=== PATIENT | male | born 1955 | race Caucasian/White ===

== ENCOUNTER 2018-12-15 21:47 | Emergency (ER) | payer SELFPAY ==
--- NOTE | 2018-12-15 23:01 | ER Document Report ---
ED General - General Chief Complaint: Chest Pain Stated Complaint: CHEST PAIN Time Seen by Provider: 12/15/18 23:00 Notes: Patient is a 63-year-old male who presents with complaint of chest pain. Chest pain is pressure-like sensation over his left side of his chest. Some shortness of breath. No fevers. No vomiting. No diarrhea. Patient is visiting from [place]. He says he has been down there for approximately a month and around out of his Plavix 2 weeks ago. He ran out of his losartan a few days ago. He says he also had little bit of dizziness earlier in the day. He says he has a history of a previous stroke several years ago where he had a cerebellar stroke which caused dizziness and therefore this caused him some concern. He denies any dizziness at this time. He denies any focal weakness or numbness. No facial droop. No recent trauma. No other complaints at this time. He has a history of 2 previous stents. Last cardiac cath and stent placement was in 2016. This was done in [place]. TRAVEL OUTSIDE OF THE [place] IN LAST 30 DAYS: No - Related Data Allergies/Adverse Reactions: No Known Allergies Allergy (Unverified 12/15/18 23:26) Past Medical History - Social History Smoking Status: Unknown if Ever Smoked Frequency of alcohol use: None Drug Abuse: None Family History: Reviewed & Not Pertinent Physical Exam - Vital signs Vitals: Temp Pulse Resp BP Pulse Ox 98.5 F 65 18 184/116 H 95 12/15/18 22:14 12/15/18 22:14 12/15/18 22:14 12/15/18 22:14 12/15/18 22:14 Course - Re-evaluation Re-evalutation: 12/16/18 01:11 After 2 sublingual nitro patient's chest pain went down to a 2 out of 10. I then placed Nitropaste on him and his pain is now resolved. He looks and feels well. He started complain about the dizziness he and therefore I did obtain a CT scan. No evidence of intracerebral bleeding. He clinically looks well and i s comfortable. Due to the fact that he has elevated troponin, history of stents, and has been off his Plavix I have large concern that he probably has reocclusion of 1 of his stents or another blockage. I feel that he should get a facility where they can do potential cardiac intervention. I therefore called [facility] and I am waiting to hear back from the hospitalist. 12/16/18 02:15 I did speak with Dr. Mynor Saunders who agrees to accept the patient for transfer. Patient says he is feeling a bit anxious being that he might be having a heart attack and therefore we will give a small dose of Ativan. He continues to deny any chest pain since Nitropaste has been applied. - Vital Signs Vital signs: Temp Pulse Resp BP Pulse Ox 97.8 F 65 0 L 130/93 H 95 12/16/18 03:00 12/15/18 22:14 12/16/18 03:01 12/16/18 03:01 12/16/18 03:01 - Laboratory Result Diagrams: 12/15/18 23:05 12/15/18 23:05 - EKG Interpretation by Me Additional EKG results interpreted by me: 12/15/18 23:00 EKG is reviewed and interpreted by me. Sinus rhythm with a rate of [address] segment elevation. No significant ST segment depression. FL interval, QRS duration, QT intervals are within normal range. No old EKG available for comparison. Discharge - Discharge Clinical Impression: NSTEMI (non-ST elevated myocardial infarction) Condition: Stable Disposition: [facility]
[2018-12-15] MEDS ORDERED: CLOPIDOGREL BISULFATE 75 MG TABLET PO ONE (23:07)
[2018-12-15] MEDS ORDERED: ASPIRIN 325 MG TABLET PO ONE (23:07)
[2018-12-15 23:23] LABS: ABSOLUTE BASOPHILS # (AUTO) 0.1 10^3/uL (0.0-0.2); ABSOLUTE EOSINOPHILS # (AUTO) 0.1 10^3/uL (0.0-0.6); ABSOLUTE MONOCYTES (AUTO) 0.7 10^3/uL (0.1-1.4); ABSOLUTE NEUT (AUTO) 3.2 10^3/uL (1.7-8.2); BASOPHILS % (AUTO) 1.2 % (0-2); EOSINOPHILS % (AUTO) 1.7 % (0-6); HEMATOCRIT 40.6 % (37.9-51.0); HEMOGLOBIN 14.5 g/dL (13.5-17.0); LYMPHOCYTES % (AUTO) 42.8 % (13-45); MEAN CORPUSCULAR HEMOGLOBIN 31.7 pg (27.0-33.4); MEAN CORPUSCULAR HGB CONC 35.8 g/dL (32.0-36.0); MEAN CORPUSCULAR VOLUME 88 fl (80-97); MONOCYTES % (AUTO) 9.7 % (3-13); PLATELET COUNT 274 10^3/uL (150-450); RED BLOOD COUNT 4.59 10^6/uL (4.35-5.55); RED CELL DISTRIBUTION WIDTH 13.8 % (11.5-14.0); SEGMENTED NEUTROPHILS % (AUTO) 44.6 % (42-78); TOTAL CELLS COUNTED % (AUTO) 100 %; WHITE BLOOD COUNT 7.1 10^3/uL (4.0-10.5)
--- NOTE | 2018-12-15 23:31 | RADIOLOGY REPORT (SQ) ---
EXAM DESCRIPTION: XR CHEST 1 VIEW COMPLETED DATE/TME: 12/15/2018 23:08 CLINICAL HISTORY: 63 years, Male, chest pain COMPARISON: None. NUMBER OF VIEWS: 1 TECHNIQUE: Portable chest LIMITATIONS: None. FINDINGS: Heart size normal. Scarring left lung base. No pneumothorax. Lungs are otherwise clear IMPRESSION: No acute cardiopulmonary process copyright 2010 [employer]- All Rights Reserved
[2018-12-15] MEDS: NITROGLYCERIN 0.4 MG/TAB 25 TAB/BOTTLE SL PRN ×2 (23:32→23:39)
[2018-12-15 23:34] LABS: ALANINE AMINOTRANSFERASE 69 U/L (21-72); ALBUMIN 4.3 g/dL (3.5-5.0); ALKALINE PHOSPHATASE 89 U/L (38-126); ANION GAP 13 (5-19); ASPARTATE AMINO TRANSFERASE 50 U/L (17-59); BILIRUBIN,DIRECT 0.1 mg/dL (0.0-0.4); BLOOD UREA NITROGEN 14 mg/dL (7-20); CALCIUM 9.5 mg/dL (8.4-10.2); CARBON DIOXIDE 22 mmol/L (22-30); CHLORIDE 105 mmol/L (98-107); GLUCOSE 93 mg/dL (75-110); SODIUM 139.9 mmol/L (137-145); TOTAL PROTEIN 7.3 g/dL (6.3-8.2)
--- NOTE | 2018-12-15 23:47 | EKG REPORT ---
SEVERITY:- ABNORMAL ECG - SINUS RHYTHM NONSPECIFIC INTRAVENTRICULAR CONDUCTION DELAY MINIMAL ST DEPRESSION, INFERIOR LEADS : Confirmed by: Camille Hollingsworth 15-Dec-2018 23:47:03
[2018-12-15] MEDS ORDERED: NITROGLYCERIN 2% OINTMENT 1 GM PACKET TP ONE (23:54)
--- NOTE | 2018-12-16 01:05 | RADIOLOGY REPORT (SQ) ---
EXAM DESCRIPTION: CT HEAD WITHOUT IV CONTRAST COMPLETED DATE/TME: 12/16/2018 00:09 CLINICAL HISTORY: 63 years, Male, dizziness COMPARISON: None Available. Technique: Contiguous axial images of the brain were obtained without the administration of intravenous contrast. Coronal and sagittal reformats obtained and reviewed. This exam was performed according to our departmental dose-optimization program which includes use of Automated Exposure Control, adjustment of the mA and/or kV according to patient size and/or use of iterative reconstruction technique. Findings: Brain: Periventricular and deep white matter hypodensities, most commonly due to nonspecific white matter chronic microvascular ischemia.No hemorrhage. No territorial infarct. No mass effect. No herniation. Ventricles: Within normal limits for patient's age. Bones: No acute osseous abnormality. Paranasal sinuses: Unremarkable. Mastoid air cells: Unremarkable. Soft tissues: No acute abnormality. IMPRESSION: No acute intracranial abnormalities.
[2018-12-16] MEDS ORDERED: ENOXAPARIN SODIUM INJ 100 MG/1 ML DISP.SYRIN SUBCUT SCH ×2 (01:30→10:00)
[2018-12-16] MEDS ORDERED: ENOXAPARIN SODIUM INJ 100 MG/1 ML DISP.SYRIN SUBCUT ONE (02:00)
[2018-12-16] MEDS ORDERED: LORAZEPAM 0.5 MG TABLET PO ONE (02:14)
[2018-12-16 03:03] VITALS: BP 130/93
== END 2018-12-16 03:10 | disposition short-term general hospital (02) ==
LOC: ER 21:47
DX: I21.4 Non-ST elevation (NSTEMI) myocardial infarction (principal); T45.526A Underdosing of antithrombotic drugs, initial encounter; T46.5X6A Underdosing of other antihypertensive drugs, initial encounter; Z91.128 Patient's intentional underdosing of medication regimen for other reason; Z91.14 Patient's other noncompliance with medication regimen; F41.9 Anxiety disorder, unspecified; R42 Dizziness and giddiness; Z86.73 Personal history of transient ischemic attack (TIA), and cerebral infarction without residual deficits; Z95.5 Presence of coronary angioplasty implant and graft
CPT/HCPCS: 93005; 99285; 96372; 36415; 85025; 80053; 84484; 71045; 70450; 93010; J1650

== ENCOUNTER 2019-11-18 18:25 | Emergency (ER) | payer SELFPAY ==
[2019-11-18 18:56] LABS: ABSOLUTE BASOPHILS # (AUTO) 0.1 10^3/uL (0.0-0.2); ABSOLUTE EOSINOPHILS # (AUTO) 0.1 10^3/uL (0.0-0.6); ABSOLUTE LYMPHOCYTES (AUTO) 2.2 10^3/uL (0.5-4.7); ABSOLUTE MONOCYTES (AUTO) 1.2 10^3/uL (0.1-1.4); ABSOLUTE NEUT (AUTO) 9.2 10^3/uL (1.7-8.2); BASOPHILS % (AUTO) 0.7 % (0-2); EOSINOPHILS % (AUTO) 0.5 % (0-6); HEMATOCRIT 40.8 % (37.9-51.0); HEMOGLOBIN 14.2 g/dL (13.5-17.0); LYMPHOCYTES % (AUTO) 17.1 % (13-45); MEAN CORPUSCULAR HEMOGLOBIN 31.5 pg (27.0-33.4); MEAN CORPUSCULAR HGB CONC 34.8 g/dL (32.0-36.0); MEAN CORPUSCULAR VOLUME 90 fl (80-97); MONOCYTES % (AUTO) 9.5 % (3-13); PLATELET COUNT 271 10^3/uL (150-450); RED BLOOD COUNT 4.51 10^6/uL (4.35-5.55); RED CELL DISTRIBUTION WIDTH 13.7 % (11.5-14.0); SEGMENTED NEUTROPHILS % (AUTO) 72.2 % (42-78); TOTAL CELLS COUNTED % (AUTO) 100 %; WHITE BLOOD COUNT 12.7 10^3/uL (4.0-10.5)
[2019-11-18 19:15] LABS: ALBUMIN 4.1 g/dL (3.5-5.0); ALKALINE PHOSPHATASE 110 U/L (38-126); ANION GAP 7 (5-19); ASPARTATE AMINO TRANSFERASE 38 U/L (17-59); BILIRUBIN,TOTAL 1.8 mg/dL (0.2-1.3); BLOOD UREA NITROGEN 14 mg/dL (7-20); CALCIUM 9.7 mg/dL (8.4-10.2); CARBON DIOXIDE 26 mmol/L (22-30); CHLORIDE 104 mmol/L (98-107); CREATINE KINASE 45 U/L (55-170); GLUCOSE 108 mg/dL (75-110); POTASSIUM 4.5 mmol/L (3.6-5.0); TOTAL PROTEIN 7.1 g/dL (6.3-8.2)
[2019-11-18 19:25] LABS: CREATINE KINASE MB 0.34 ng/mL (<4.55)
[2019-11-18 19:26] LABS: TROPONIN I < 0.012 ng/mL
--- NOTE | 2019-11-18 22:34 | ER Document Report ---
ED General - General Chief Complaint: Chest Pain Stated Complaint: RIGHT SIDE CHEST PAIN/NAUSEA Time Seen by Provider: 11/18/19 22:17 Primary Care Provider: JONY CROFT NP [Primary Care Provider] - Follow up as needed TRAVEL OUTSIDE OF THE [place] IN LAST 30 DAYS: No - HPI Notes: 64-year-old male presenting for evaluation of chest pain. This gentleman had coronary bypass surgery approximately a year ago. He has had no pain until yesterday afternoon when he started having intermittent right-sided pleuritic pain. This described as 4/10 intensity. Associated with mild dyspnea. Non- productive cough. No fever. No hemoptysis. He denies any leg pain or swelling. No recent trauma or surgery. No known history of thromboembolic disease. Several additional episodes of similar discomfort today. This afternoon while he was driving his car his pain seemed to get a little worse. He called EMS and was transported here. He was given nitroglycerin once by EMS and he reports that his pain was resolved thereafter and has not returned. He takes aspirin daily and has had his aspirin today. Patient has hypertension and hyperlipidemia. He is not diabetic. His family history is strongly positive for coronary disease. Family history is negative for thromboembolic disease. - Related Data Allergies/Adverse Reactions: No Known Allergies Allergy (Unverified 12/15/18 23:26) Home Medications: pt unable to recall medication, states that someone will arrive with a list Past Medical History - General Information source: Patient - Social History Smoking Status: Never Smoker Family History: Reviewed & Not Pertinent Patient has suicidal ideation: No Patient has homicidal ideation: No - Past Medical History Cardiac Medical History: Reports: Hx Heart Attack - under anesthesia, Hx Hypertension Renal/ Medical History: Denies: Hx Peritoneal Dialysis Past Surgical History: Reports: Hx Cardiac Catheterization - x2, Hx Cardiac Surgery - 2 stents Review of Systems - Review of Systems Notes: Constitutional: Negative for fever. HENT: Negative for sore throat. Eyes: Negative for visual changes. Cardiovascular: As per HPI. Respiratory: As per HPI. Gastrointestinal: Negative for abdominal pain, vomiting or diarrhea. Genitourinary: Negative for dysuria. Musculoskeletal: Negative for back pain. Skin: Negative for rash. Neurological: Negative for headaches, weakness or numbness. 10 point ROS negative except as marked above and in HPI. Physical Exam - Vital signs Vitals: Resp BP Pulse Ox 21 H 168/103 H 95 11/18/19 18:38 11/18/19 18:38 11/18/19 18:38 - Notes Notes: GENERAL: Well-developed well-nourished appearing in no acute distress. SKIN: Good turgor no rashes. HEAD: Normocephalic atraumatic. EYES: PERRLA. EOMI. Conjunctivae and sclerae clear. EARS: CANALS AND TMS CLEAR. NOSE: CLEAR. MOUTH: Moist mucosa. Good dentition. No stridor or edema. No drooling. NECK: Supple. No masses or thyromegaly. No adenopathy. Carotids 2+ without bruits. No JVD. BACK: Symmetrical without tenderness. CHEST: Healed CABG scar. Respirations unlabored. Breath sounds clear and symmetrical. HEART: Regular rhythm. No murmur gallop or rub. ABDOMEN: Soft nontender without masses, organomegaly or rebound. Bowel sounds normally active. No bruits. GENITALIA: Deferred. EXTREMITIES: No edema. No calf tenderness. Cap refill less than 1.5 seconds. Dorsalis pedis and posterior tibial pulses 3+ and symmetrical. NEUROLOGICAL: GCS 15. Alert and oriented x3. Normal gait. Fluent speech. Cranial nerves II through XII intact. Sensorimotor and cerebellar normal. Normal tone. PSYCHIATRIC: Appropriate affect. Course - Re-evaluation Re-evalutation: 11/18/19 23:22 Initial EKG shows no acute changes. He has had 2 troponins here which are neg ative. Because of his age group and the pattern of his pain which is pleuritic in nature as well as his associated transient dyspnea I am going to get a chest CTA to rule out PE. - Vital Signs Vital signs: Temp Pulse Resp BP Pulse Ox 98.2 F 75 21 H 150/99 H 96 11/18/19 20:58 11/18/19 20:58 11/19/19 03:01 11/19/19 03:01 11/19/19 03:01 - Laboratory Result Diagrams: 11/18/19 18:40 11/18/19 18:40 Laboratory results interpreted by me: 11/18/19 11/18/19 18:40 18:40 WBC 12.7 H Absolute Neuts (auto) 9.2 H Sodium 136.9 L Total Bilirubin 1.8 H ALT 63 H Creatine Kinase 45 L Discharge - Discharge Clinical Impression: Pruritus Condition: Stable Disposition: HOME, SELF-CARE Additional Instructions: Pleurisy Your chest pain has been diagnosed as pleuritis (pleurisy). This is an in flammation of the surface of the lung tissue. It can be caused by a virus or, occasionally, old scar tissue. It is painful but, for the most part, not a serious problem. This pain is usually made worse by deep breathing, coughing, or sudden movements of the upper body or arms. The treatment is relief of symptoms. It includes rest, antiinflammatory medication, and pain medicine. Resolution of the pain is usually rapid once antiinflammatory medication is started. Warning signs of a more serious problem include: a fever, shortness of breath, pain that radiates to your jaw, shoulders or arms, or coughing up bloody sputum. If any of these symptoms occur, call the physician at once. Take prescribed medications. See your doctor tomorrow for follow-up. Return here as needed for new or worsening symptoms: Pain that is worsening or unimproved Uncontrolled vomiting High fever or shaking chills Overall worsening Prescriptions: Acetaminophen with Codeine [Tylenol with Codeine #3 Tablet] 2 each PO Q6H 3 Days #20 tablet Azithromycin [Zithromax 250 mg Tablet] 250 mg PO ASDIR PRN #6 tablet PRN Reason: Referrals: JONY CROFT NP [Primary Care Provider] - Follow up as needed
--- NOTE | 2019-11-19 01:08 | RADIOLOGY REPORT (SQ) ---
EXAM DESCRIPTION: CT CHEST ANGIOGRAPHY WITHOUT THEN WITH IV CONTRAST COMPLETED DATE/TME: 11/18/2019 23:18 CLINICAL HISTORY: 64 years, Male, Pleuritic CP. CREAT 1.07 COMPARISON: None. TECHNIQUE: Images stored on PACS. All CT scanners at this facility use dose modulation, iterative reconstruction, and/or weight based dosing when appropriate to reduce radiation dose to as low as reasonably achievable (ALARA). [facility]: Dose Right [facility]: CareDose [facility]: Dose Right [facility]: Teradose 4D [facility]: [employer] LIMITATIONS: None. FINDINGS: Motion artifact No evidence of pulmonary embolus. Thoracic aorta is of normal caliber. The heart is enlarged with postsurgical change from midline sternotomy. No pericardial fluid. The lungs demonstrate chronic changes. No acute process. No effusion. No pneumothorax. Visualized abdominal contents are unremarkable. IMPRESSION: No evidence of pulmonary embolus.. Lungs grossly clear TECHNICAL DOCUMENTATION: Quality ID # 436: Final reports with documentation of one or more dose reduction techniques (e.g., Automated exposure control, adjustment of the mA and/or kV according to patient size, use of iterative reconstruction technique) copyright 2011 [employer]- All Rights Reserved
[2019-11-19] MEDS ORDERED: ONDANSETRON HCL INJ/PF 4 MG/2 ML SDV IV ONE (02:29)
[2019-11-19] MEDS ORDERED: PANTOPRAZOLE SODIUM 40 MG VIAL IV ONE (02:30)
[2019-11-19] MEDS ORDERED: FENTANYL CITRATE INJ/PF 100 MCG/2 ML AMPUL IV ONE (02:30)
[2019-11-19] MEDS ORDERED: AZITHROMYCIN INJ 500 MG VIAL IV ONE (02:34)
[2019-11-19 05:44] VITALS: BP 139/95
--- NOTE | 2019-11-19 17:23 | EKG REPORT ---
SEVERITY:- OTHERWISE NORMAL ECG - SINUS RHYTHM MINIMAL ST DEPRESSION, INFERIOR LEADS : Confirmed by: Brittanie Lopez MD 19-Nov-2019 17:23:22
--- NOTE | 2019-11-19 17:23 | EKG REPORT ---
SEVERITY:- NORMAL ECG - SINUS RHYTHM : Confirmed by: Brittanie Lopez MD 19-Nov-2019 17:23:19
== END 2019-11-19 05:44 | disposition home or self-care (01) ==
LOC: ER 18:25
DX: L29.9 Pruritus, unspecified (principal); R07.9 Chest pain, unspecified; R11.0 Nausea; I10 Essential (primary) hypertension; E78.5 Hyperlipidemia, unspecified; I25.2 Old myocardial infarction; Z95.1 Presence of aortocoronary bypass graft; Z79.82 Long term (current) use of aspirin
CPT/HCPCS: 93005 ×2; 36415; 87040; 82553; 82550; 85025; 80053; 84484; 71275; 93010 ×2; J3010; C9113; J2405; J0456; 96365; 96375; 99285

== ENCOUNTER 2020-03-27 08:41 | Emergency (ER) | payer MEDICARE, OTHER ==
[2020-03-27 09:09] LABS: APPEARANCE,URINE CLOUDY; BILIRUBIN,URINE NEGATIVE (NEGATIVE); GLUCOSE, URINE NEGATIVE (NEGATIVE); KETONES,URINE NEGATIVE (NEGATIVE); LEUKOCYTE ESTERASE,URINE MODERATE (NEGATIVE); NITRITE,URINE POSITIVE (NEGATIVE); PROTEIN,URINE 100 mg/dL (NEGATIVE); UROBILINOGEN,URINE NEGATIVE mg/dL (<2.0)
[2020-03-27 09:11] LABS: COLOR,URINE BROWN
[2020-03-27 10:06] LABS: ALKALINE PHOSPHATASE 107 U/L (38-126); ANION GAP 7 (5-19); ASPARTATE AMINO TRANSFERASE 33 U/L (17-59); BILIRUBIN,TOTAL 2.2 mg/dL (0.2-1.3); BLOOD UREA NITROGEN 17 mg/dL (7-20); CALCIUM 9.3 mg/dL (8.4-10.2); CARBON DIOXIDE 25 mmol/L (22-30); CHLORIDE 105 mmol/L (98-107); GLUCOSE 176 mg/dL (75-110); TOTAL PROTEIN 6.9 g/dL (6.3-8.2)
[2020-03-27] MEDS ORDERED: NORMAL SALINE 500 ML IV ONE ×2 (10:36→12:11)
[2020-03-27 10:37] LABS: ABSOLUTE BASOPHILS # (AUTO) 0.1 10^3/uL (0.0-0.2); ABSOLUTE LYMPHOCYTES (AUTO) 1.7 10^3/uL (0.5-4.7); ABSOLUTE MONOCYTES (AUTO) 1.1 10^3/uL (0.1-1.4); ABSOLUTE NEUT (AUTO) 8.2 10^3/uL (1.7-8.2); BASOPHILS % (AUTO) 0.5 % (0-2); EOSINOPHILS % (AUTO) 0.3 % (0-6); HEMATOCRIT 38.3 % (37.9-51.0); HEMOGLOBIN 13.3 g/dL (13.5-17.0); LYMPHOCYTES % (AUTO) 15.7 % (13-45); MEAN CORPUSCULAR HEMOGLOBIN 31.7 pg (27.0-33.4); MEAN CORPUSCULAR HGB CONC 34.7 g/dL (32.0-36.0); MEAN CORPUSCULAR VOLUME 91 fl (80-97); MONOCYTES % (AUTO) 9.5 % (3-13); PLATELET COUNT 214 10^3/uL (150-450); RED CELL DISTRIBUTION WIDTH 13.8 % (11.5-14.0); TOTAL CELLS COUNTED % (AUTO) 100 %
[2020-03-27] MEDS ORDERED: MORPHINE SULFATE 10 MG/ML INJ IV ONE (10:37)
[2020-03-27] MEDS ORDERED: ONDANSETRON HCL INJ/PF 4 MG/2 ML SDV IV ONE (10:37)
--- NOTE | 2020-03-27 11:13 | RADIOLOGY REPORT (SQ) ---
EXAM DESCRIPTION: CT ABD/PELVIS NO ORAL OR IV IMAGES COMPLETED DATE/TIME: 03/27/2020 10:54 am REASON FOR STUDY: hematuria/right flank pain COMPARISON: None. TECHNIQUE: CT scan of the abdomen and pelvis performed without intravenous or oral contrast. Images reviewed with lung, soft tissue, and bone windows. Reconstructed coronal and sagittal MPR images revi ewed. All images stored on PACS. All CT scanners at this facility use dose modulation, iterative reconstruction, and/or weight based d osing when appropriate to reduce radiation dose to as low as reasonably achievable (ALARA). [facility]: Dose Right [facility]: CareDose [facility]: Dose Right [facility]: Teradose 4D [facility]: [employer] RADIATION DOSE: mGy. LIMITATIONS: None. FINDINGS: LOWER CHEST: No significant findings. No nodules or infiltrates. NON-CONTRASTED LIVER, SPLEEN, ADRENALS: Evaluation limited by lack of IV contrast. No identified sign ificant masses. PANCREAS: No masses. No peripancreatic inflammatory changes. GALLBLADDER: No identified stones by CT criteria. No inflammatory changes to suggest cholecystitis. RIGHT KIDNEY AND URETER: No suspicious masses. Assessment limited by lack of IV contrast. No signif icant calcifications. No hydronephrosis or hydroureter. LEFT KIDNEY AND URETER: No suspicious masses. Assessment limited by lack of IV contrast. No signifi cant calcifications. No hydronephrosis or hydroureter. AORTA AND RETROPERITONEUM: No aneurysm. No retroperitoneal masses or adenopathy. BOWEL AND PERITONEAL CAVITY: No obvious masses or inflammatory changes. No free fluid. APPENDIX: Normal. PELVIS, BLADDER, AND ABDOMINAL WALL:No abnormal masses. No free fluid. Bladder normal. BONES: No aggressive appearing bony lesions. OTHER: No other significant finding. IMPRESSION: NO SIGNIFICANT OR ACUTE PROCESS IN THE ABDOMEN OR PELVIS. No findings to explain patien t's symptoms. COMMENT: Quality ID # 436: Final reports with documentation of one or more dose reduction techniques (e.g., Automated exposure control, adjustment of the mA and/or kV according to patient size, use of iterative reconstruction technique) TECHNICAL DOCUMENTATION: JOB ID: [id number] 2010 [employer]- All Rights Reserved Reading location - IP/workstation name: [email or web address]
--- NOTE | 2020-03-27 11:17 | RADIOLOGY REPORT (SQ) ---
EXAM DESCRIPTION: SHOULDER LEFT 2 OR MORE VIEWS IMAGES COMPLETED DATE/TIME: 03/27/2020 11:07 am REASON FOR STUDY: pain with movement COMPARISON: None. NUMBER OF VIEWS: Three views. TECHNIQUE: Internal rotation, external rotation, and Y view images acquired of the left shoulder. LIMITATIONS: None. FINDINGS: MINERALIZATION: Normal. BONES: No acute fracture. No worrisome bone lesions. JOINTS: There is mild arthrosis in the acromioclavicular joint. There is mild to moderate glenohumer al arthrosis present with a large osteophytic projection on the inferior aspect glenoid. VISUALIZED LUNGS AND RIBS: No pneumothorax. No rib fracture. SOFT TISSUES: Post CABG changes present in the chest OTHER: No other significant finding. IMPRESSION: Degenerative changes. No evidence of acute injury. TECHNICAL DOCUMENTATION: JOB ID: [id number] 2010 [employer]- All Rights Reserved Reading location - IP/workstation name: [email or web address]
--- NOTE | 2020-03-27 13:01 | RADIOLOGY REPORT (SQ) ---
EXAM DESCRIPTION: CT ABD/PELVIS WITH IV ONLY IMAGES COMPLETED DATE/TIME: 03/27/2020 12:44 pm REASON FOR STUDY: abd pain/hematuria COMPARISON: None. TECHNIQUE: CT scan of the abdomen and pelvis performed using helical scanning technique with dynamic intravenous contrast injection. No oral contrast. Images reviewed with lung, soft tissue, and bone w indows. Reconstructed coronal and sagittal MPR images reviewed. Delayed images for evaluation of the urinary system also acquired. All images stored on PACS. All CT scanners at this facility use dose modulation, iterative reconstruction, and/or weight based d osing when appropriate to reduce radiation dose to as low as reasonably achievable (ALARA). [facility]: Dose Right [facility]: CareDose [facility]: Dose Right [facility]: Teradose 4D [facility]: [employer] CONTRAST TYPE AND DOSE: contrast/concentration: Isovue 350.00 mmol/ml; Total Contrast Delivered: 100 .0 ml; Total Saline Delivered: 72.0 ml RENAL FUNCTION: GFR > 60. RADIATION DOSE: CT Rad equipment meets quality standard of care and radiation dose reduction techniq ues were employed. CTDIvol: NaN - NaN mGy. DLP: 0 mGy-cm.. LIMITATIONS: None. FINDINGS: LOWER CHEST: No significant findings. LIVER: Normal size. No enhancing masses. No dilated ducts. SPLEEN: Normal size. No focal lesions. PANCREAS: No masses identified. No significant calcifications. No adjacent inflammation or peripancre atic fluid collections. Pancreatic duct not dilated. GALLBLADDER: No calcified stones. No inflammatory changes to suggest cholecystitis. ADRENAL GLANDS: No significant masses. RIGHT KIDNEY AND URETER: No cysts identified. No solid masses identified. No calcified stones. No hyd ronephrosis or hydroureter. LEFT KIDNEY AND URETER: No cysts identified. No solid masses identified. No calcified stones. No hydr onephrosis or hydroureter. AORTA AND VESSELS: No aneurysm. No dissection. Renal arteries, SMA, celiac without significant stenos is. RETROPERITONEUM: No bulky retroperitoneal adenopathy. BOWEL AND PERITONEAL CAVITY: No obstruction or inflammatory changes. No free fluid. APPENDIX: Normal. PELVIS: No free fluid. Unremarkable bladder. ABDOMINAL WALL: No masses. No hernias. BONES: No acute findings. OTHER: No other significant finding. IMPRESSION: NO ACUTE FINDINGS IN THE ABDOMEN OR PELVIS ON CT SCAN WITH IV CONTRAST. TECHNICAL DOCUMENTATION: JOB ID: [id number] Quality ID # 436: Final reports with documentation of one or more dose reduction techniques (e.g., Au tomated exposure control, adjustment of the mA and/or kV according to patient size, use of iterative reconstruction technique) 2010 [employer]- All Rights Reserved Reading location - IP/workstation name: [email or web address]
[2020-03-27] MEDS ORDERED: CEFTRIAXONE 1 GM/D5W RTU 1 GM/50 ML RTUPB IV ONE (13:55)
[2020-03-27] MEDS ORDERED: LEVOFLOXACIN 750 MG/D5W RTU 750 MG/150 ML RTUPB IV ONE (15:18)
[2020-03-27] MEDS ORDERED: NORMAL SALINE 1000 ML 1,000 ML IV ONE (16:12)
[2020-03-27] MEDS ORDERED: ACETAMINOPHEN 325 MG TABLET PO ONE (16:15)
--- NOTE | 2020-03-27 16:20 | ER Document Report ---
Entered by VITA RIDER SCRIBE 03/27/20 1027 Acting as scribe for:BRANDI HARDY MD ED GI/ - General Chief Complaint: Flank Pain Stated Complaint: FLANK PAIN Time Seen by Provider: 03/27/20 09:46 Primary Care Provider: MARIBELL DUMONT PA-C [Primary Care Provider] - Follow up as needed Information source: Patient Notes: This 64 year old male patient presents to the emergency department today with complaints of flank pain in his sides the past x2 days. Patient states this morning there was blood in his urine and last night his urine had a odor. Patient states his flank pain is 3/5 and more in the right than left. Denies nausea, fever, or chills. Patient states his left shoulder has been sore the past x2 weeks and cannot sleep on it. Patient reports a history of kidney stones and states his flank pain is similar. Patient reports taking ibuprofen this morning prior to arrival. TRAVEL OUTSIDE OF THE [place] IN LAST 30 DAYS: No - Related Data Allergies/Adverse Reactions: No Known Allergies Allergy (Verified 03/27/20 09:09) Past Medical History - General Information source: Patient - Social History Smoking Status: Former Smoker Cigarette use (# per day): No Chew tobacco use (# tins/day): No Frequency of alcohol use: None Drug Abuse: None Family History: Reviewed & Not Pertinent Patient has homicidal ideation: No - Past Medical History Cardiac Medical History: Reports: Hx Heart Attack - x2, Hx Hypertension Neurological Medical History: Reports: Hx Cerebrovascular Accident - x3 Renal/ Medical History: Reports: Hx Kidney Stones Past Surgical History: Reports: Hx Cardiac Catheterization - x2, Hx Cardiac Surgery - 2 stents Review of Systems - Review of Systems Constitutional: See HPI. denies: Chills, Fever EENT: No symptoms reported Cardiovascular: No symptoms reported Respiratory: No symptoms reported Gastrointestinal: See HPI. denies: Nausea Genitourinary: See HPI, Flank pain - R>L, Hematuria Male Genitourinary: No symptoms reported Musculoskeletal: See HPI, Other - L shoulder pain Skin: No symptoms reported Hematologic/Lymphatic: No symptoms reported Neurological/Psychological: No symptoms reported -: Yes All other systems reviewed and negative Physical Exam - Vital signs Vitals: Temp Pulse Resp BP Pulse Ox 98.5 F 87 16 157/88 H 95 03/27/20 08:45 03/27/20 08:45 03/27/20 08:45 03/27/20 08:45 03/27/20 08:45 - General General appearance: Alert In distress: Moderate - HEENT Head: Normocephalic, Atraumatic Eyes: Normal Pupils: PERRL - Respiratory Respiratory status: No respiratory distress Chest status: Nontender Breath sounds: Normal Chest palpation: Normal - Cardiovascular Rhythm: Regular Heart sounds: Normal auscultation, S1 appreciated, S2 appreciated Murmur: No - Abdominal Inspection: Normal - Soft Distension: No distension Bowel sounds: Normal Tenderness: Tender - Flanks R>L. No: Rebound - Extremities General upper extremity: Normal inspection. No: Edema General lower extremity: Normal inspection. No: Edema Shoulder: Tender - L shoulder, Other - L shoulder Normal ROM - Neurological Neuro grossly intact: Yes Cognition: Normal Orientation: AAOx4 Speech: Normal - Psychological Associated symptoms: Normal affect, Normal mood - Skin Skin Temperature: Warm Skin Moisture: Dry Skin Color: Normal Course - Re-evaluation Re-evalutation: 03/27/20 15:41 Patient is going to be receiving IV levofloxacin 750 mg prior to discharge. Also there currently is a lactic acid pending to determine if patient has any signs of sepsis. Patient is hemodynamically stable not showing any fever or tachycardia or drop in blood pressure. 03/27/20 16:16 Patient lactic acid resulted in a level of 0.9. At this time I doubt the patient has sepsis at this time. Patient is receiving IV fluids and IV Levaquin at this time. Once medications and fluids are completed the patient has been discharged home on Levaquin. Also recommended taking Tylenol if needed. - Vital Signs Vital signs: Temp Pulse Resp BP Pulse Ox 98.9 F 65 16 180/93 H 97 03/27/20 14:49 03/27/20 14:49 03/27/20 14:49 03/27/20 14:49 03/27/20 14:49 - Laboratory Result Diagrams: 03/27/20 09:45 03/27/20 09:45 Laboratory results interpreted by me: 03/27/20 03/27/20 03/27/20 08:50 09:45 09:45 WBC 11.0 H RBC 4.20 L Hgb 13.3 L Creatinine 1.27 H Est GFR (MDRD) Non-Af 57 L Glucose 176 H Total Bilirubin 2.2 H Urine Protein 100 H Urine Blood LARGE H Urine Nitrite POSITIVE H Ur Leukocyte Esterase MODERATE H - Diagnostic Test Radiology reviewed: Image reviewed, Reports reviewed Radiology results interpreted by me: 03/27/20 15:[address] scan of abdomen and pelvis with IV contrast again discloses no acute process no obstruction no inflammation found. Discharge - Discharge Clinical Impression: Hematuria, Flank pain, Urinary tract infection, Pyelonephritis Condition: Good Disposition: HOME, SELF-CARE Instructions: Urinary Tract Infection ([facility]), Pyelonephritis ([facility]) Additional Instructions: Urinary Tract Infection Your evaluation indicates that you have a urinary tract infection. This is due to germs growing in the bladder. This is a common problem. This infection usually responds quickly to antibiotics. Your antibiotic should be taken exactly as prescribed. Drink plenty of fluids -- three to four quarts a day. Occasionally, a bladder anesthetic will be prescribed to help stop the feeling of urgency until the antibiotic has a chance to clear the infection. This may cause your urine to be dark orange. Certain urine infections require a culture. If the doctor obtained a culture, the results will be back in two days. You should call to see if a change in treatment is needed. A repeat urinalysis after you finish treatment is often recommended. The physician will let you know if further testing is required. Call the doctor if you develop fever, chills, flank pain, inability to urinate, or blood in the urine. Recommend increase p.o. fluids. Also take Tylenol 1000 mg twice a day if needed for pain or fever. Prescriptions: Levofloxacin [Levaquin 500 mg Tablet] 500 mg PO DAILY #10 tablet Referrals: MARIBELL DUMONT PA-C [Primary Care Provider] - Follow up as needed I personally performed the services described in the documentation, reviewed and edited the documentation which was dictated to the scribe in my presence, and it accurately records my words and actions.
[2020-03-27 19:24] VITALS: BP 166/98
== END 2020-03-27 20:05 | disposition home or self-care (01) ==
LOC: ER 08:41
DX: N39.0 Urinary tract infection, site not specified (principal); N12 Tubulo-interstitial nephritis, not specified as acute or chronic; R31.9 Hematuria, unspecified; I10 Essential (primary) hypertension; I25.2 Old myocardial infarction; Z86.73 Personal history of transient ischemic attack (TIA), and cerebral infarction without residual deficits; Z87.442 Personal history of urinary calculi
CPT/HCPCS: 99284; 96361; 96375; 96365; 96366; 96367; 36415; 87040; 87086; 83605; 83690; 85025; 87077; 87088; 80053; 81001; 87186; 87150 ×26; 73030; 74176; 74177; A9270; J2270; J2405; J7030; J7040; J0696; J1956

== ENCOUNTER 2020-08-04 11:54 | Emergency (ER) | payer MEDICARE ==
[2020-08-04 12:08] VITALS: BP 112/66
--- NOTE | 2020-08-04 12:26 | ER Document Report ---
ED Medical Screen (RME) - General Chief Complaint: Chest Pain Stated Complaint: CHEST PAIN Time Seen by Provider: 08/04/20 12:25 Primary Care Provider: MARIBELL DUMONT PA-C [Primary Care Provider] - Follow up as needed Mode of Arrival: Ambulatory Information source: Patient Notes: HPI; 64-year-old male past medical history significant for multiple strokes, [place] x3 with bypass presents to the emergency room complaining of intermittent chest pain which she describes as a dull sensation. States it started 2 days ago on the right side of his chest and is now radiating across to the left side of his chest. States hurts to take a deep breath. No difficulty breathing. No fevers. No diaphoresis. No recent travel. No COVID-19 exposure. No history of DVTs or PEs. PE: Alert and oriented x3. Lungs: Clear to auscultation without rales, rhonchi, wheezes. Heart: Regular rate rhythm without murmurs, rubs, gallops. I have greeted and performed a rapid initial assessment of this patient. A comprehensive ED assessment and evaluation of the patient, analysis of test results and completion of the medical decision making process will be conducted by additional ED providers. I have specifically instructed the patient or family members with the patient to immediately return to any nursing staff should anything change in the patient's condition or with their chief complaint. TRAVEL OUTSIDE OF THE [place] IN LAST 30 DAYS: No - Related Data Allergies/Adverse Reactions: No Known Allergies Allergy (Verified 08/04/20 12:21) Home Medications: lisinopril. atorvastatin Past Medical History - General Information source: Patient - Social History Chew tobacco use (# tins/day): No Frequency of alcohol use: None Drug Abuse: None - Past Medical History Cardiac Medical History: Reports: Hx Heart Attack - x2, Hx Hypertension Neurological Medical History: Reports: Hx Cerebrovascular Accident - x3 Renal/ Medical History: Reports: Hx Kidney Stones. Denies: Hx Peritoneal Dialysis Past Surgical History: Reports: Hx Cardiac Catheterization - x2, Hx Cardiac Surgery - 2 stents Physical Exam - Vital signs Vitals: Temp Pulse Resp BP Pulse Ox 98.1 F 74 20 112/66 97 08/04/20 12:06 08/04/20 12:06 08/04/20 12:06 08/04/20 12:06 08/04/20 12:06 Course - Vital Signs Vital signs: Temp Pulse Resp BP Pulse Ox 98.1 F 74 20 112/66 97 08/04/20 12:21 08/04/20 12:06 08/04/20 12:06 08/04/20 12:06 08/04/20 12:06 Doctor's Discharge - Discharge Referrals: MARIBELL DUMONT PA-C [Primary Care Provider] - Follow up as needed
--- NOTE | 2020-08-04 13:22 | RADIOLOGY REPORT (SQ) ---
EXAM DESCRIPTION: CHEST 2 VIEWS IMAGES COMPLETED DATE/TIME: 08/04/2020 1:13 pm REASON FOR STUDY: chest pain COMPARISON: 11/25/2018 EXAM PARAMETERS: NUMBER OF VIEWS: two views TECHNIQUE: Digital Frontal and Lateral radiographic views of the chest acquired. RADIATION DOSE: NA LIMITATIONS: none FINDINGS: LUNGS AND PLEURA: There is hyperexpansion were linear scarring or atelectasis in the lung bases. No pneumothorax. No consolidation. MEDIASTINUM AND HILAR STRUCTURES: No masses or contour abnormalities. HEART AND VASCULAR STRUCTURES: Heart normal size. No evidence for failure. BONES: No acute findings. HARDWARE: None in the chest. OTHER: No other significant finding. IMPRESSION: NO ACUTE RADIOGRAPHIC FINDING IN THE CHEST. TECHNICAL DOCUMENTATION: JOB ID: [id number] 2010 [employer]- All Rights Reserved Reading location - IP/workstation name: [email or web address]
[2020-08-04 13:23] LABS: ABSOLUTE EOSINOPHILS # (AUTO) 0.1 10^3/uL (0.0-0.6); ABSOLUTE LYMPHOCYTES (AUTO) 2.4 10^3/uL (0.5-4.7); ABSOLUTE MONOCYTES (AUTO) 0.9 10^3/uL (0.1-1.4); ABSOLUTE NEUT (AUTO) 5.5 10^3/uL (1.7-8.2); BASOPHILS % (AUTO) 0.4 % (0-2); EOSINOPHILS % (AUTO) 0.8 % (0-6); HEMATOCRIT 41.1 % (37.9-51.0); HEMOGLOBIN 13.9 g/dL (13.5-17.0); LYMPHOCYTES % (AUTO) 26.8 % (13-45); MEAN CORPUSCULAR HEMOGLOBIN 31.4 pg (27.0-33.4); MEAN CORPUSCULAR HGB CONC 33.9 g/dL (32.0-36.0); MEAN CORPUSCULAR VOLUME 93 fl (80-97); MONOCYTES % (AUTO) 10.3 % (3-13); PLATELET COUNT 259 10^3/uL (150-450); RED BLOOD COUNT 4.43 10^6/uL (4.35-5.55); RED CELL DISTRIBUTION WIDTH 13.6 % (11.5-14.0); SEGMENTED NEUTROPHILS % (AUTO) 61.7 % (42-78); TOTAL CELLS COUNTED % (AUTO) 100 %; WHITE BLOOD COUNT 8.9 10^3/uL (4.0-10.5)
[2020-08-04 13:40] LABS: ALBUMIN 4.2 g/dL (3.5-5.0); ALKALINE PHOSPHATASE 124 U/L (38-126); ANION GAP 10 (5-19); ASPARTATE AMINO TRANSFERASE 32 U/L (17-59); BILIRUBIN,TOTAL 1.3 mg/dL (0.2-1.3); BLOOD UREA NITROGEN 16 mg/dL (7-20); CALCIUM 9.7 mg/dL (8.4-10.2); CARBON DIOXIDE 26 mmol/L (22-30); CHLORIDE 103 mmol/L (98-107); CREATINE KINASE 51 U/L (55-170); GLUCOSE 136 mg/dL (75-110); POTASSIUM 4.7 mmol/L (3.6-5.0)
--- NOTE | 2020-08-04 13:44 | ER Document Report ---
Doctor's Note Notes: 08/04/20 13:42 Was notified by nursing staff that patient would like to leave AGAINST MEDICAL ADVICE. Patient states he has an appointment at 4 PM that he does not want to miss. He was counseled on the risks of leaving AGAINST MEDICAL ADVICE. The patient has chosen to leave the facility against medical advice. The relev ant issues have been reviewed and discussed with the patient and family at the bedside. At the time of this assessment there is no indication for involuntary commitment. The patient is alert, oriented, and able to express clearly their reasoning for not wanting to remain in the emergency department for further treatment. The patient is not clinically psychotic, intoxicated, and denies and suicidal ideation. Differential or suspected diagnoses based on medical screening exam: Chest pain The patient is aware of the concerning diagnoses and acknowledges understanding of the reasons for the following recommendations: Loss of life, permanent disability, chronic pain, worsening of condition, cardiac dysfunction, respiratory dysfunction ,loss of current lifestyle, urinary dysfunction The following recommendations/services were offered and refused: Further testing and evaluation The following risks were explained: , permanent disability, loss of current lifestyle, respiratory dysfunction, urinary dysfunction, chronic pain, cardiac dysfunction Clinical impression: Patient is competent to make decisions regarding the medical that is being offered. Discharge - Discharge Clinical Impression: Left against medical advice Chest pain Qualifiers: Chest pain type: unspecified Qualified Code(s): R07.9 - Chest pain, unspecified Condition: Stable Disposition: AGAINST MEDICAL ADVICE Instructions: Chest Pain of Unclear Cause ([facility]) Additional Instructions: You have requested to leave AGAINST MEDICAL ADVICE. You are counseled against the risks of leaving AGAINST MEDICAL ADVICE including but not limited to , chronic pain, worsening condition, loss of current lifestyle. Cardiac dysfunction, respiratory dysfunction. Please follow-up outpatient with your primary care physician as soon as possible. Return to the emergency room for any new or worsening symptoms. Referrals: MARIBELL DUMONT PA-C [NO LOCAL MD] - Follow up as needed
[2020-08-04 13:49] LABS: CREATINE KINASE MB 0.34 ng/mL (<4.55)
[2020-08-04 13:54] LABS: TROPONIN I < 0.012 ng/mL
--- NOTE | 2020-08-04 17:47 | EKG REPORT ---
SEVERITY:- ABNORMAL ECG - SINUS RHYTHM NONSPECIFIC INTRAVENTRICULAR CONDUCTION DELAY PROBABLE INFERIOR INFARCT, AGE INDETERMINATE : Confirmed by: Camille Hollingsworth 04-Aug-2020 17:45:41
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
== END 2020-08-04 13:40 | disposition left against medical advice (07) ==
LOC: ER 11:54
DX: R07.1 Chest pain on breathing (principal); I10 Essential (primary) hypertension; I25.2 Old myocardial infarction; Z95.1 Presence of aortocoronary bypass graft; Z95.5 Presence of coronary angioplasty implant and graft; Z79.899 Other long term (current) drug therapy; Z53.29 Procedure and treatment not carried out because of patient's decision for other reasons
CPT/HCPCS: 36415; 71046; 80053; 82550; 82553; 84484; 85025; 93005; 93010; 99285